=== PATIENT | female | born 1955 | race Caucasian/White ===

== ENCOUNTER → 2016-06-05 | Outpatient (CLI) | payer OTHER ==
[~2016-06-05] MED LIST: ASPIRIN EC81 M1 PO; ASPIRIN81 M2 PO; CITALOPRAM HBR40 MG PO; GLIPIZIDE10 MG/BOTT PO; GLUCOPHAGE XR500 MG PO; GLUCOTROL XL10 MG PO; GLUCOTROL10 MG PO; LANTUS SOLOSTAR3 ML SUBQ; LIPITOR; LISINOPRIL10 MG PO; LOTREL 10/20 MG1 CAP; LOW DOSE ASPIRI81 M1 PO; METANX CAPSULE1 EACH PO; METFORMIN PO; MOBIC PO; MULTIVITAMIN1 UDCAP PO; NEURONTIN300 MG PO; NORCO 7.5-3251 EACH PO; OMEPRAZOLE20 M1 PO; OMEPRAZOLE40 M1 PO; SIMVASTATIN20 MG PO; SYNTHROID PO; TRADJENTA5 MG PO; ULTRAM PO; ZOCOR PO
[2016-06-05 14:59] LABS: BLOOD UREA NITROGEN 13 mg/dL (9-23); BUN/CREATININE RATIO 21.66; CALCIUM SERUM 9.3 mg/dL (8.4-10.2); CARBON DIOXIDE 28 mmol/L (22-31); CHLORIDE 101 mmol/L (100-111); CREATININE SERUM 0.6 mg/dL (0.6-1.4); GLOM FILT RATE Estimated ABOVE60 mL/min (>60); GLUCOSE FASTING 98 mg/dL (70-110); POTASSIUM 4.3 mmol/L (3.5-5.1); SODIUM 140 mmol/L (135-145)
== END | disposition home or self-care (01) ==
LOC: CAMB 13:46
PROVIDERS: Surgery
DX: Z01.812 Encounter for preprocedural laboratory examination (principal)
CPT/HCPCS: 36415; 80048

== ENCOUNTER → 2016-06-10 | Outpatient (CLI) | payer OTHER ==
--- NOTE | ~2016-06-10 | CR63 ---
[facility]. [facility] A Service of [facility] RADIOLOGY TEXT RESULTS PATIENT: ELLI GERMAN LOCATION: [facility] : 57 UNIT #: [id number] AGE: [address]: Bruno Irizarry MD SEX: F ORDER DR: [id number] [place] [id number] O MR#: [id number] Acc #: [id number] NAME: ELLI GERMAN : 1955 SEX: F STUDY DATE/TIME: 06/10/2016 14:49 UNIT: [facility] ROOM: STUDY DESCRIPTION: CR Chest 2 View Attending Physician: Bruno Irizarry M.D. Referring Physician: Bruno Irizarry M.D. Ordering Physician: Bruno Irizarry M.D. Primary Care Physician: Bruno Irizarry M.D. MEDICAL IMAGING REPORT This report is preliminary unless electronic signature is present. EXAM Two-view chest, 06/10/2016 INDICATION Preop evaluation for neck surgery. Gastroesophageal reflux. FINDINGS PA and lateral views of the chest compared to 03/03/2016. Heart mediastinal contour is normal. Lungs are clear. No pleural effusion. IMPRESSION No acute cardiopulmonary findings. Dictated by... Jaime Ronquillo M.D. THIS IS AN ELECTRONICALLY VERIFIED REPORT Jaime Ronquillo M.D. at 06/11/2016 8:38 AM SILVIANO/nicci TD: 06/10/2016 21:13 JOB #: [id number] MEDICAL IMAGING REPORT
== END | disposition home or self-care (01) ==
LOC: SRAD 14:17
DX: Z01.811 Encounter for preprocedural respiratory examination (principal)
CPT/HCPCS: 71020

== ENCOUNTER 2016-06-12 07:43 | Observation (INO) | payer OTHER ==
--- NOTE | ~2016-06-12 | OR ---
Unit #: [id number] #: [id number] Patient: ELLI GERMAN [id number] [address] [place], [place] [address] [id number] Sarah MR#: [id number] NAME: ELLI GERMAN ROOM: [facility] Date of Procedure: 06/12/2016 Admission Date: 06/12/2016 Surgeon: Slade Fishman III, M.D. : 1955 Attending Physician: Slade Fishman III, M.D. Referring Physician: Slade Fishman III, M.D. Primary Care Physician: Bruno Irizarry M.D. OPERATIVE REPORT PREOPERATIVE DIAGNOSES Hiatal hernia and gastroesophageal reflux disease. POSTOPERATIVE DIAGNOSES Hiatal hernia and gastroesophageal reflux disease. PROCEDURE PERFORMED Laparoscopic Shawn fundoplication. CANCER REGISTRY COORDINATOR Dr. Rahul Medrano. SPECIMENS None. COMPLICATIONS None apparent. ESTIMATED BLOOD LOSS Minimal. INDICATIONS FOR PROCEDURE This is a 60-year-old lady, who has a known history of a hiatal hernia and reflux disease. She is here today for lap Shawn. DESCRIPTION OF PROCEDURE After consent was obtained, the patient was brought to the operating room and placed in the supine position. General anesthetic was administered. Her abdomen was prepped and draped in standard surgical fashion. I made a 1 cm incision just above and left of the umbilicus. I dissected down and used a Visiport to enter into the peritoneal cavity without any difficulty. CO2 pneumoperitoneum was then established. Next, a Meron liver retractor was placed in the subxiphoid region and an 11-mm port was placed in the midepigastric region and two 5 mm ports were placed, one in the left lateral subcostal region and the other in the right upper quadrant. I began by opening up the clear space in the gastrohepatic ligament. I scored the phrenoesophageal ligament and began mobilizing the esophagus circumferentially. I dissected out the crura bilaterally and all the way to the posterior V. Once I had the crural dissection completed, I took down the upper third of the fundus, short gastrics with the Harmonic Scalpel. I then turned my attention to closure of the hiatal defect. I used an interrupted 0 Ethibond [id number] suture to reapproximate the defect. I then performed a 360-degree wrap creating a Unit #: [id number] #: [id number] Patient: ELLI GERMAN loose floppy wrap with three interrupted 0 Ethibond sutures. The superior most stitch incorporated a bite of the anterior esophagus. I had excellent hemostasis. All needle, sponge, and instrument counts were correct x2. I removed all the trocars and released the pneumoperitoneum. I injected all port sites with 0.25% plain Marcaine. I then reapproximated the skin edges with interrupted 4-0 Vicryl subcuticular suture. Steri-Strips were then applied. The patient tolerated the procedure without any problems and returned to the recovery room in stable condition. Dictated by... Slade Fishman III, M.D. VCL/ruy TD: 06/13/2016 21:55 JOB #: [id number] OPERATIVE REPORT X Slade Fishman III, MD PROCEDURE OPERATIVE NOTE
[2016-06-13 03:58] LABS: HEMATOCRIT 35.6 % (35.0-45.0); HEMOGLOBIN 11.8 gm/dL (12.0-16.0); MEAN CELL VOLUME 88.9 FL (83-96); MEAN CORPUSCULAR HEMOGLOBIN 29.4 PG (28-34); MEAN CORPUSCULAR HGB CONC 33.1 g/dL (30-36); MEAN PLATELET VOLUME 10.3 FL (6.5-11.5); RED CELL DISTRIBUTION WIDTH 14.6 % (11.0-15.5); WHITE BLOOD COUNT 9.6 X10e3 (4.0-10.5)
== END 2016-06-13 12:17 | disposition home or self-care (01) ==
LOC: CSUR 07:43 → CPACUOF 09:31 → C4C 15:32
PROVIDERS: Surgery
DX: K44.9 Diaphragmatic hernia without obstruction or gangrene (principal); K21.9 Gastro-esophageal reflux disease without esophagitis; I10 Essential (primary) hypertension; E10.9 Type 1 diabetes mellitus without complications; E78.00 Pure hypercholesterolemia, unspecified; G47.30 Sleep apnea, unspecified; E78.5 Hyperlipidemia, unspecified; E03.9 Hypothyroidism, unspecified; K58.9 Irritable bowel syndrome, unspecified
CPT/HCPCS: 82947; 85027; 94760; 96374; 96375; 96376; G0378; J0330; J0690; J1100; J1650; J1885; J2250; J2270; J2405; J2710; J3010